=== PATIENT | male | born 1990 | race Caucasian/White ===

== ENCOUNTER 2020-07-06 01:41 | Emergency (ER) | payer SELFPAY ==
[2020-07-06] MEDS ORDERED: Sodium Chloride 0.9% 1,000 ML IV STA (02:03)
[2020-07-06] MEDS ORDERED: Sodium Chloride 0.9% 10 ML Syringe FLUSH PRN (02:03)
[2020-07-06] MEDS ORDERED: Ondansetron 4 MG/2 ML SDV IVPUSH ONE (02:10)
--- NOTE | 2020-07-06 03:27 | EDM.PDOC ---
ED HPI GENERAL MEDICAL PROBLEM - General Chief Complaint: Gastrointestinal Problem Stated Complaint: VOMITING Time Seen by Provider: 07/06/20 02:00 Source of Information: Reports: Patient History Limitations: Reports: No Limitations - History of Present Illness INITIAL COMMENTS - FREE TEXT/NARRATIVE: The patient presents with nausea and vomiting and possible dehydration. 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 He has nausea and vomiting and generalized weakness. He has no fever, chills, cough, congestion, runny nose, chest pain, or shortness of breath. He has no abdominal pain. He has no dysuria or hematuria. Onset: Gradual Duration: Day(s): Severity: Moderate Improves with: Reports: None Worsens with: Reports: None Associated Symptoms: Reports: Nausea/Vomiting. Denies: Chest Pain, Cough, Fever/Chills, Headaches, Shortness of Breath - Related Data Allergies Allergy/AdvReac Type Severity Reaction Status Date / Time No Known Allergies Allergy Verified 07/06/20 01:55 Past Medical History Musculoskeletal History: Reports: Other (See Below) Other Musculoskeletal History: fx collar bone Neurological History: Reports: Migraines Social & Family History - Tobacco Use Used Tobacco, but Quit: No - Caffeine Use Caffeine Use: Reports: Coffee, Energy Drinks - Recreational Drug Use Recreational Drug Use: Yes Drug Use in Last 12 Months: No Recreational Drug Type: Reports: Marijuana/Hashish ED ROS GENERAL - Review of Systems Review Of Systems: See Below Constitutional: Reports: Malaise, Weakness. Denies: Fever, Chills HEENT: Reports: No Symptoms Respiratory: Reports: No Symptoms Cardiovascular: Reports: No Symptoms Endocrine: Reports: No Symptoms GI/Abdominal: Reports: Nausea, Vomiting. Denies: Abdominal Pain, Diarrhea : Reports: No Symptoms Musculoskeletal: Reports: No Symptoms Skin: Reports: No Symptoms Neurological: Reports: No Symptoms ED EXAM, GI/ABD - Physical Exam Exam: See Below Exam Limited By: No Limitations General Appearance: Alert, No Apparent Distress Ears: Normal External Exam Nose: Normal Inspection Head: Atraumatic, Normocephalic Neck: Normal Inspection Respiratory/Chest: No Respiratory Distress, Lungs Clear, Normal Breath Sounds Cardiovascular: Regular Rate, Rhythm, No Edema, No Murmur GI/Abdominal Exam: Soft, Non-Tender, No Organomegaly, No Mass Back Exam: Normal Inspection Extremities: Normal Inspection Course - Vital Signs Last Recorded V/S: Last Vital Signs Temp 96.4 F L 07/06/20 01:51 Pulse 71 07/06/20 01:51 Resp 20 07/06/20 01:51 BP 134/76 07/06/20 01:51 Pulse Ox - Orders/Labs/Meds Orders: Active Orders 24 hr Category Date Time Status Peripheral IV Care [RC] . DIRECTED Care 07/06/20 02:03 Active Sodium Chloride 0.9% [Saline Flush] Med 07/06/20 02:03 Active 10 ml FLUSH ASDIRECTED PRN ED Antiemetic Medication Reflex [OM.PC] Stat Oth 07/06/20 02:03 Ordered Peripheral IV Insertion Adult [OM.PC] Stat Oth 07/06/20 02:03 Ordered Medication Orders Sodium Chloride (Saline Flush) 10 ml FLUSH ASDIRECTED PRN PRN Reason: Keep Vein Open Last Admin: 07/06/20 02:09 Dose: 10 ml Documented by: ELENO Labs: Laboratory Tests 07/06/20 07/06/20 07/06/20 Range/Units 02:03 02:03 03:08 WBC 8.46 (4.23-9.07) K/mm3 RBC 5.02 (4.63-6.08) M/mm3 Hgb 14.8 (13.7-17.5) gm/dl Hct 44.3 (40.1-51.0) % MCV 88.2 (79.0-92.2) fl MCH 29.5 (25.7-32.2) pg MCHC 33.4 (32.2-35.5) g/dl RDW Std Deviation 38.8 (35.1-43.9) fL Plt Count 232 (163-337) K/mm3 MPV 9.6 (9.4-12.3) fl Neut % (Auto) 75.8 H (34.0-67.9) % Lymph % (Auto) 16.1 L (21.8-53.1) % [place] % (Auto) 6.7 (5.3-12.2) % Eos % (Auto) 0.6 L (0.8-7.0) Baso % (Auto) 0.6 (0.1-1.2) % Neut # (Auto) 6.41 H (1.78-5.38) K/mm3 Lymph # (Auto) 1.36 (1.32-3.57) K/mm3 [place] # (Auto) 0.57 (0.30-0.82) K/mm3 Eos # (Auto) 0.05 (0.04-0.54) K/mm3 Baso # (Auto) 0.05 (0.01-0.08) K/mm3 Sodium 141 (136-145) mEq/L Potassium 4.0 (3.5-5.1) mEq/L Chloride 103 (98-107) mEq/L Carbon Dioxide 28 (21-32) mEq/L Anion Gap 14.0 (5-15) BUN 21 H (7-18) mg/dL Creatinine 0.9 (0.7-1.3) mg/dL Est Cr Clr Drug Dosing 125.87 mL/min Estimated GFR (MDRD) > 60 (>60) mL/min BUN/Creatinine Ratio 23.3 H (14-18) Glucose 113 H (74-106) mg/dL Calcium 9.0 (8.5-10.1) mg/dL Magnesium 2.0 (1.8-2.4) mg/dl Total Bilirubin 0.8 (0.2-1.0) mg/dL AST 23 (15-37) U/L ALT 27 (16-63) U/L Alkaline Phosphatase 57 (46-116) U/L Creatine Kinase 470 H (39-308) U/L Total Protein 8.0 (6.4-8.2) g/dl Albumin 4.4 (3.4-5.0) g/dl Globulin 3.6 gm/dL Albumin/Globulin Ratio 1.2 (1-2) Urine Color Yellow (Yellow) Urine Appearance Slt cloudy H (Clear) Urine pH 7.0 (5.0-8.0) Ur Specific [place] 1.025 (1.005-1.030) Urine Protein Trace H (Negative) Urine Glucose (UA) Negative (Negative) Urine Ketones 1+ H (Negative) Urine Occult Blood Trace-intact H (Negative) Urine Nitrite Negative (Negative) Urine Bilirubin Negative (Negative) Urine Urobilinogen 0.2 (0.2-1.0) Ur Leukocyte Esterase Negative (Negative) Urine RBC 0-5 (0-5) /hpf Urine WBC 0-5 (0-5) /hpf Ur Squamous Epith Cells 0-5 (0-5) /hpf Amorphous Sediment Moderate H (NOT SEEN) /hpf Urine Bacteria Few (FEW) /hpf Urine Mucus Moderate H (FEW) /hpf Meds: Medications Generic Name Dose Route Start Last Admin Trade Name Roseanna PRN Reason Stop Dose Admin Sodium Chloride 10 ml 07/06/20 02:03 07/06/20 02:09 Saline Flush FLUSH 10 ml ASDIRECTED PRN Administration Keep Vein Open Discontinued Medications Generic Name Dose Route Start Last Admin Trade Name Freq PRN Reason Stop Dose Admin Sodium Chloride 1,000 mls @ 1,000 mls/hr 07/06/20 02:03 07/06/20 02:09 Normal Saline IV 07/06/20 03:02 1,000 mls/hr .BOLUS STA Administration Ondansetron HCl 4 mg 07/06/20 02:10 07/06/20 02:13 Zofran IVPUSH 07/06/20 02:11 4 mg ONETIME ONE Administration - Re-Assessments/Exams Free Text/Narrative Re-Assessment/Exam: 07/06/20 03:26 I ordered an IV NS 1L bolus, zofran 4mg IV, labs and UA. 07/06/20 03:27 His CBC and CMP look good. His CK was elevated at 470. Departure - Departure Time of Disposition: 03:30 Disposition: Home, Self-Care 01 Condition: Good Clinical Impression: Dehydration Nausea & vomiting Qualifiers: Vomiting type: unspecified Vomiting Intractability: non-intractable Qualified Code(s): R11.2 - Nausea with vomiting, unspecified - Discharge Information *PRESCRIPTION DRUG MONITORING PROGRAM REVIEWED*: Not Applicable *COPY OF PRESCRIPTION DRUG MONITORING REPORT IN PATIENT TRISTIAN: Not Applicable Referrals: PCP,None [Primary Care Provider] - Starla Avalos NP [Nurse Practitioner] - 1 Week Forms: ED Department Discharge Additional Instructions: Go home and rest. Drink plenty of fluids. Take the zofran as needed for any more nausea and vomiting. Please return if you are worse. Sepsis Event Note (ED) - Evaluation Sepsis Screening Result: No Definite Risk - Focused Exam Vital Signs: Vital Signs Temp Pulse Resp BP 07/06/20 01:51 96.4 F L 71 20 134/76 - My Orders Last 24 Hours: My Active Orders 07/06/20 02:03 Peripheral IV Care [RC] . DIRECTED Sodium Chloride 0.9% [Saline Flush] 10 ml FLUSH ASDIRECTED PRN ED Antiemetic Medication Reflex [OM.PC] Stat Peripheral IV Insertion Adult [OM.PC] Stat - Assessment/Plan Last 24 Hours: My Active Orders 07/06/20 02:03 Peripheral IV Care [RC] . DIRECTED Sodium Chloride 0.9% [Saline Flush] 10 ml FLUSH ASDIRECTED PRN ED Antiemetic Medication Reflex [OM.PC] Stat Peripheral IV Insertion Adult [OM.PC] Stat
== END 2020-07-06 03:43 | disposition home or self-care (01) ==
LOC: JD.ED 01:41
DX: E86.0 Dehydration (principal); R11.2 Nausea with vomiting, unspecified
CPT/HCPCS: 36415; 80053; 81001; 82550; 83735; 85025; 96374; 99284; J2405; J7030

== ENCOUNTER 2021-02-17 14:59 | Emergency (ER) | payer SELFPAY ==
[2021-02-17] MEDS ORDERED: Metoclopramide 10 MG/2 ML SDV IVPUSH ONE (15:35)
[2021-02-17] MEDS ORDERED: Ketorolac 30 MG/ML SDV IVPUSH ONE (15:35)
[2021-02-17] MEDS ORDERED: Sodium Chloride 0.9% 10 ML Syringe FLUSH PRN (15:35)
[2021-02-17] MEDS ORDERED: Sodium Chloride 0.9% 1,000 ML IV ONE (15:35)
[2021-02-17] MEDS ORDERED: diphenhydrAMINE 50 MG/ML SDV IVPUSH ONE (15:35)
--- NOTE | 2021-02-17 15:40 | EDM.PDOC ---
ED HPI GENERAL MEDICAL PROBLEM - General Chief Complaint: Headache Stated Complaint: HEADACHE Time Seen by Provider: 02/17/21 15:22 Source of Information: Reports: Patient, RN Notes Reviewed History Limitations: Reports: No Limitations - History of Present Illness INITIAL COMMENTS - FREE TEXT/NARRATIVE: Patient is a 30-year-old male who presents to the ER for evaluation of his headache. Patient states he has a history of migraine headaches. He states he has been working hard in his yard for the last day or so, putting up a vinyl fence, with no help. States this is been fairly stressful. He has pain about his left eye, and left orthodox and this does not seem to radiate anywhere else. Having some slight blurred vision/light sensitivity, but no visual disturbances. He has not had any fevers or chills, cough or shortness of breath, he is having some nausea but has had no vomiting or diarrhea. Patient's not been around anyone has been sick. He has not had COVID-19, nor did he get the vaccine. Headache Pain Score (Numeric/FACES): 6 - Related Data Allergies Allergy/AdvReac Type Severity Reaction Status Date / Time No Known Allergies Allergy Verified 07/06/20 01:55 Past Medical History Musculoskeletal History: Reports: Other (See Below) Other Musculoskeletal History: fx collar bone Neurological History: Reports: Migraines Social & Family History - Tobacco Use Tobacco Use Status *Q: Current Every Day Tobacco User Years of Tobacco use: 2 Packs/Tins Daily: 0.2 - Caffeine Use Caffeine Use: Reports: Coffee, Energy Drinks, Soda, Tea - Recreational Drug Use Recreational Drug Use: No ED ROS GENERAL - Review of Systems Review Of Systems: Comprehensive ROS is negative, except as noted in HPI. - Physical Exam Exam: See Below Exam Limited By: No Limitations General Appearance: Alert, WD/WN, No Apparent Distress Respiratory/Chest: No Respiratory Distress, Lungs Clear, Normal Breath Sounds, No Accessory Muscle Use, Chest Non-Tender Cardiovascular: Normal Peripheral Pulses, Regular Rate, Rhythm, No Edema GI/Abdominal: Normal Bowel Sounds, Soft, Non-Tender, No Distention Neuro Exam (Abbreviated): Alert, Oriented, Normal Cognition, No Motor/Sensory Deficits Extremities: Normal Inspection, Normal Capillary Refill Psychiatric: Normal Affect, Normal Mood Skin Exam: Warm, Dry, Intact, Normal Color, No Rash Course - Vital Signs Last Recorded V/S: Last Vital Signs Temp 96.7 F L 02/17/21 15:10 Pulse 64 02/17/21 15:10 Resp 18 02/17/21 15:10 BP 123/83 02/17/21 15:10 Pulse Ox 100 02/17/21 15:10 - Orders/Labs/Meds Orders: Active Orders 24 hr Category Date Time Status Peripheral IV Care [RC] . DIRECTED Care 02/17/21 15:36 Ordered Sodium Chloride 0.9% [Saline Flush] Med 02/17/21 15:35 Ordered 10 ml FLUSH ASDIRECTED PRN Peripheral IV Insertion Adult [OM.PC] Routine Oth 02/17/21 15:36 Ordered Medication Orders Sodium Chloride (Sodium Chloride 0.9% 10 Ml Syringe) 10 ml FLUSH ASDIRECTED PRN PRN Reason: Keep Vein Open Last Admin: 02/17/21 16:04 Dose: 10 ml Documented by: ALEAH Labs: Laboratory Tests 02/17/21 02/17/21 Range/Units 16:06 16:06 WBC 7.27 (4.23-9.07) K/mm3 RBC 4.58 L (4.63-6.08) M/mm3 Hgb 13.9 (13.7-17.5) gm/dl Hct 42.6 (40.1-51.0) % MCV 93.0 H D (79.0-92.2) fl MCH 30.3 (25.7-32.2) pg MCHC 32.6 (32.2-35.5) g/dl RDW Std Deviation 44.3 H (35.1-43.9) fL Plt Count 211 (163-337) K/mm3 MPV 9.7 (9.4-12.3) fl Neut % (Auto) 76.3 H (34.0-67.9) % Lymph % (Auto) 14.7 L (21.8-53.1) % [place] % (Auto) 7.4 (5.3-12.2) % Eos % (Auto) 1.1 (0.8-7.0) Baso % (Auto) 0.4 (0.1-1.2) % Neut # (Auto) 5.54 H (1.78-5.38) K/mm3 Lymph # (Auto) 1.07 L (1.32-3.57) K/mm3 [place] # (Auto) 0.54 (0.30-0.82) K/mm3 Eos # (Auto) 0.08 (0.04-0.54) K/mm3 Baso # (Auto) 0.03 (0.01-0.08) K/mm3 Sodium 140 (136-145) mEq/L Potassium 4.0 (3.5-5.1) mEq/L Chloride 105 (98-107) mEq/L Carbon Dioxide 29 (21-32) mEq/L Anion Gap 10.0 (5-15) BUN 11 (7-18) mg/dL Creatinine 0.7 (0.7-1.3) mg/dL Est Cr Clr Drug Dosing 169.63 mL/min Estimated GFR (MDRD) > 60 (>60) mL/min BUN/Creatinine Ratio 15.7 (14-18) Glucose 106 H (70-99) mg/dL Calcium 8.3 L (8.5-10.1) mg/dL Total Bilirubin 0.6 (0.2-1.0) mg/dL AST 38 H (15-37) U/L ALT 47 (16-63) U/L Alkaline Phosphatase 55 (46-116) U/L Total Protein 6.8 (6.4-8.2) g/dl Albumin 3.8 (3.4-5.0) g/dl Globulin 3.0 gm/dL Albumin/Globulin Ratio 1.3 (1-2) Meds: Medications Generic Name Dose Route Start Last Admin Trade Name Freq PRN Reason Stop Dose Admin Sodium Chloride 10 ml 02/17/21 15:35 02/17/21 16:04 Sodium Chloride 0.9% 10 Ml Syringe FLUSH 10 ml ASDIRECTED PRN Administration Keep Vein Open Discontinued Medications Generic Name Dose Route Start Last Admin Trade Name Freq PRN Reason Stop Dose Admin Diphenhydramine HCl 25 mg 02/17/21 15:35 02/17/21 16:03 Diphenhydramine 50 Mg/Ml Sdv IVPUSH 02/17/21 15:36 25 mg ONETIME ONE Administration Sodium Chloride 1,000 mls @ 999 mls/hr 02/17/21 15:35 02/17/21 16:03 Normal Saline IV 02/17/21 16:35 999 mls/hr ASDIRECTED ONE Administration Ketorolac Tromethamine 30 mg 02/17/21 15:35 02/17/21 16:03 Ketorolac 30 Mg/Ml Sdv IVPUSH 02/17/21 15:36 30 mg ONETIME ONE Administration Metoclopramide HCl 10 mg 02/17/21 15:35 02/17/21 16:03 Metoclopramide 10 Mg/2 Ml Sdv IVPUSH 02/17/21 15:36 10 mg ONETIME ONE Administration - Re-Assessments/Exams Free Text/Narrative Re-Assessment/Exam: 02/17/21 15:40 Patient presents to the ER for evaluation of his headache, we will go ahead and give him some medications, get some basic labs for initial evaluation. I did offer to do a COVID-19 screen, due to the patient's headache, nausea but he declined at this time. 02/17/21 16:59 Laboratory evaluation is unremarkable, patient was reassessed at bedside and states he is feeling much better, will discharge home with general recommendations. Departure - Departure Time of Disposition: 17:00 Disposition: Home, Self-Care 01 Condition: Good Clinical Impression: Tension headache - Discharge Information *PRESCRIPTION DRUG MONITORING PROGRAM REVIEWED*: No *COPY OF PRESCRIPTION DRUG MONITORING REPORT IN PATIENT TRISTIAN: No Instructions: Tension Headache, Adult, [id number] Referrals: PCP,None [Primary Care Provider] - Forms: ED Department Discharge Additional Instructions: You were evaluated in the ED for your headache. You were given a combination of medications and IV fluid for management. This did seem to provide you pretty good relief of your symptoms. Recommend that you go home and rest in a quiet, darkened room. Try also to keep well hydrated. Laboratory evaluation done at today's visit was unremarkable for any acute worrisome findings. Please return to the ED if your symptoms should change or worsen. Sepsis Event Note (ED) - Focused Exam Vital Signs: Vital Signs Temp Pulse Resp BP Pulse Ox 02/17/21 15:10 96.7 F L 64 18 123/83 100 - My Orders Last 24 Hours: My Active Orders 02/17/21 15:35 Sodium Chloride 0.9% [Saline Flush] 10 ml FLUSH ASDIRECTED PRN 02/17/21 15:36 Peripheral IV Care [RC] . DIRECTED Peripheral IV Insertion Adult [OM.PC] Routine - Assessment/Plan Last 24 Hours: My Active Orders 02/17/21 15:35 Sodium Chloride 0.9% [Saline Flush] 10 ml FLUSH ASDIRECTED PRN 02/17/21 15:36 Peripheral IV Care [RC] . DIRECTED Peripheral IV Insertion Adult [OM.PC] Routine
== END 2021-02-17 17:07 | disposition home or self-care (01) ==
LOC: JD.ED 14:59
DX: G44.209 Tension-type headache, unspecified, not intractable (principal); Z72.0 Tobacco use
CPT/HCPCS: 36415; 80053; 85025; 96374; 96375; 99284; J1200; J1885; J2765; J7030; 99283